=== PATIENT | male | born 1975 | race African-American/Black ===

== ENCOUNTER 2024-06-22 11:39 | Emergency (ER) | payer BC, SELFPAY ==
--- NOTE | ~2024-06-22 | XR_ITS ---
CLINICAL HISTORY: chest pain 1 view chest x-ray Comparison: None Findings: No consolidation or effusion. There is a left apical bulla. Heart size is normal. No acute fracture. IMPRESSION: 1. No acute findings. This document has been electronically signed by: Flynn Shaw MD on 06/22/2024 12:55:34
--- NOTE | 2024-06-22 11:42 | ECG_ITS ---
Test Reason : CHEST PAIN Blood Pressure : / mmHG Vent. Rate : 063 BPM Atrial Rate : 063 BPM P-R Int : 154 ms QRS Dur : 098 ms QT Int : 400 ms P-R-T Axes : 026 -20 030 degrees QTc Int : 409 ms Normal sinus rhythm Moderate voltage criteria for LVH, may be normal variant ( Sokolow-Covarrubias , [place] product ) Borderline ECG No previous ECGs available Referred By: Generic ED Physician Electronically Signed By:CLARE APARICIO
[2024-06-22 11:51] VITALS: BP 171/105; PULSE 69; RESP 18; TEMP 36.7; O2SAT 100; BMI 21.6
--- NOTE | 2024-06-22 11:56 | ED_ITS ---
HPI - Chest Pain General Chief Complaint: Chest Pain Stated Complaint: chest pain Time Seen by Provider: 06/22/24 13:47 Source: patient Mode of arrival: ambulatory Limitations: no limitations History of Present Illness ED Provider: Sheyla De La Torre APRN HPI narrative: 49 yo male with a history of HTN not compliant with medications in many years here with complaints of left sided chest pain with movement, breathing and coughing since Sunday morning. 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 He denies recent illnesses. No associated diaphoresis, shortness of breath, leg swelling/leg pain, fevers, chills. Sunday evening he drove from [place] to [place] but confirms this pain began before then. No family history of DVT/PE, no family history of SCD. Related Data Previous Rx's ?Medication ?Instructions ?Recorded cyclobenzaprine 10 mg tablet 10 mg PO TID PRN muscle spasm #15 06/22/24 tabs ibuprofen 600 mg tablet 600 mg PO Q6H PRN pain #30 tabs 06/22/24 lidocaine 5 % topical patch 1 patch topical DAILY #15 ea 06/22/24 (Lidoderm) Allergies Allergy/AdvReac Type Severity Reaction Status Date / Time No Known Allergies Allergy Verified 06/22/24 11:53 Review of Systems 2 Review of Systems: Yes all other systems are reviewed and are negative Constitutional: Constitutional: Reports no additional constitutional complaints, Denies body ache(s), Denies chills, Denies fever(s), Denies headache(s) and Denies weakness Eyes: Eyes: Reports no additional eye complaints and Denies change in vision ENT: Reports system reviewed and no additional complaints, except as documented, Denies dizziness, Denies headache(s), Denies nasal congestion, Denies nasal discharge and Denies neck pain Cardiovascular: Cardiovascular: Reports no additional cardiovascular complaints, Reports chest pain, Denies leg edema and Denies dyspnea Respiratory: Respiratory: Reports no additional respiratory complaints, Denies cough and Denies dyspnea Gastrointestinal: Gastrointestinal: Reports no additional gastrointestinal complaints, Denies abdominal pain, Denies diarrhea, Denies nausea and Denies vomiting Genitourinary: Genitourinary: Denies urinary incontinence Musculoskeletal: Musculoskeletal: Reports no additional musculoskeletal complaints, Denies back pain, Denies arthralgias, Denies joint swelling, Denies neck pain, Denies numbness and Denies tingling Integumentary/Breasts: Skin/Breast: Reports system reviewed and no additional complaints, except as docu and Denies rash Neurologic: Reports system reviewed and no additional complaints, except as documented, Denies Abnormal speech present, Denies dizziness, Denies headache(s), Denies numbness, Denies tingling and Denies weakness PMFSH Past Medical History Attestation statement: The following information was validated with the patient. Source: old records reviewed and nursing notes reviewed Social History Social History Advance Directives: No Advance Directives Information Provided: No Physical Exam 2 Vital Signs: Vital Signs: Last Vital Signs Temp 98.1 F 06/22/24 14:30 Pulse 55 06/22/24 14:30 Resp 16 06/22/24 14:30 BP 153/93 H 06/22/24 14:30 Pulse Ox 99 06/22/24 14:30 O2 Del Method Room Air 06/22/24 14:30 BMI result Body Mass Index 21.6 Const: General: cooperative, healthy appearing, comfortable and no acute distress Orientation/consciousness: patient oriented x3 Limitations: no limitations HEENT: Head: Yes normal to inspection Ears: hearing grossly normal bilaterally General nose exam: Normal external nose present Face and sinus: Yes normal facial exam Mouth: Normal oral and palatal mucosa present Throat: Yes posterior oropharynx normal Eyes: General: appearance normal, both eyes and all related structures P upils: Equal, round and reactive pupils present Neck: Neck: Yes normal visual inspection Chest: Chest palpation & inspection: normal inspection of the chest and tenderness (left side of chest and rib wall) costal cartilage Resp: Effort & Inspection: normal respiratory effort Auscultation: clear to auscultation bilaterally Cardio: Rate: regular rate Rhythm: regular rhythm Peripheral pulses: P eripheral pulses 2+ throughout GI: Inspection: Yes normal to inspection Palpation (GI): Soft to palpation and nontender Auscultation: normal bowel sounds Back/Spine/Pelvis: Thoracic/Lumbar Spine: thoracic and lumbar spine normal to inspection Skin: General skin exam: no rashes or lesions noted Neuro: General: patient oriented x3, no focal motor deficits and normal sensation to monofilament Cranial nerves: Yes Equal, round and reactive pupils present Cognition (Neuro): normal cognition Speech: No Abnormal speech present Gait exam (Neuro): Normal gait present Motor exam (neuro): 5/5 motor strength present throughout Extrem: General: Yes normal to inspection, Yes no pedal edema and Yes no calf tenderness Course Course Course Narrative: RME: 49-year-old male unknown past medical history presents to ED for chest pain and pleurisy for the past couple of days. Patient states travel by car 1 and days from texting messages seizures ever since then chest pain with pleurisy. Patient denies any calf pain or coughing up blood. Patient admits to being a smoker. Patient states no URI symptoms lungs are clear. Heart size normal. EKG labs chest x-ray ordered. Reevaluation(s) Reevaluation #1: EKG is nonischemic. Troponin is negative. See history of present illness is atypical for ACS and less likely with a nonischemic EKG and negative troponin. Patient's chest x-ray is negative. His additional labs are normal. Likely chest wall strain or costochondritis. Recommend patient use heat or ice, gentle stretching and take ibuprofen or muscle relaxants for pain as needed. He does have some hypertension and he should establish primary care doctor in follow-up as he may need to be on antihypertensives. As he is asymptomatic I will not put him on a antihypertensive at this time. Reviewed worrisome signs and symptoms of when to return to the emergency room. Comfortable plan for discharge home. Medical Decision Making Medical Decision Making MDM Narrative: 49 yo male with a history of HTN not compliant with medications in many years here with complaints of left sided chest pain with movement, breathing and coughing since Sunday morning. 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 He denies recent illnesses. No associated diaphoresis, shortness of breath, leg swelling/leg pain, fevers, chills. Sunday evening he drove from [place] to [place] but confirms this pain began before then. No family history of DVT/PE, no family history of SCD. Chest discomfort on palpation over the left lateral ribs and over the costal cartilage which is worsened with movement of the trunk and of the arm which is more consistent with musculoskeletal pain. Vitals are stable with the exception of mild hypertension-patient is asymptomatic as this chest pain does not seem typical for ACS Will obtain labs, EKG, chest x-ray Differential Diagnosis Differential Diagnoses: The differential diagnosis associated with the presentation includes Chest wall strain, costochondritis Low suspicion for ACS with symptoms for several days with nonischemic EKG and negative troponin Low suspicion for PE with negative D-dimer Low suspicion for aortic dissection with gradual onset of symptoms Admission/Observation Consideration of admission/observation: Escalation of care including admission/observation considered See course of care Lab Data MDM Lab Attestation statement: I reviewed the patient's lab results. 06/22/24 12:39 06/22/24 12:39 Labs: Lab Results 06/22/24 Range/Units 12:39 WBC 5.8 (4.8-10.8) X10*3/uL RBC 5.32 (4.60-5.80) X10*6/uL Hgb 16.8 (14.0-18.0) g/dl Hct 47.6 (42.0-52.0) % MCV 89.5 (80.0-98.0) fL MCH 31.6 (27.0-33.0) pg MCHC 35.3 (31.0-36.0) g/dl RDW 12.7 (11.0-16.0) % Plt Count 249 (160-400) X10*3/uL MPV 10.8 (9.4-12.4) fL Immature Gran % (Auto) 0.2 (0.0-0.4) % Neut % (Auto) 32.0 L (45-73) % Lymph % (Auto) 38.4 (20-40) % Christian % (Auto) 9.6 (2-11) % Eos % (Auto) 18.9 H (0-4) % Baso % (Auto) 0.9 (0-2) % Lymph # (Auto) 2.2 (1.2-4.9) X10*3/uL Christian # (Auto) 0.6 (0.1-1.2) X10*3/uL Eos # (Auto) 1.1 H (0.0-0.4) X10*3/uL Baso # (Auto) 0.1 (0.0-0.2) X10*3/uL Abs Immat Gran (auto) 0.01 (0.00-0.03) X10*3/uL Absolute Neuts (auto) 1.9 L (2.0-8.3) x10*3/uL Absolute Nucleated RBC 0.000 (0.0-0.012) X10*3/uL Nucleated RBC % (auto) 0.0 (0.0-0.2) /100WBC PT 11.9 (10.9-12.4) SEC INR 1.0 (0.9-1.1) APTT 35.9 (26.0-36.8) SEC D-Dimer High Sensitivty < 150 NG/ML Sodium 141 (135-145) mmol/L Potassium 4.1 (3.3-5.1) mmol/L Chloride 107 (96-108) mmol/L Carbon Dioxide 24 (22-29) mmol/L Anion Gap 14 (12-20) BUN 10 (9-16) mg/dL Creatinine 0.93 (0.5-1.4) mg/dL Estim Creat Clear Calc 103.0 Estimated GFR > 60 Random Glucose 84 (60-115) mg/dL Calcium 9.8 (8.4-10.2) mg/dL Total Bilirubin 1.0 (0.0-1.0) mg/dL AST 24 (5-37) U/L ALT 12 (0-40) U/L Alkaline Phosphatase 74 (39-117) U/L Troponin I High Sens < 2.7 (<3.5-35.0) ng/L B-Natriuretic Peptide < 10 (<100) pg/mL Total Protein 7.7 (6.5-8.0) g/dL Albumin 4.5 (3.5-5.0) g/dL Influenza Type A (PCR) NEGATIVE (Negative) Influenza Type B (PCR) NEGATIVE (Negative) RSV RNA Qual (PCR) NEGATIVE (Negative) SARS-CoV-2 RNA (RT-PCR) NEGATIVE (Negative) Independent Interpretation I performed an independent interpretation of an: EKG and Plain X-Ray Interpretation: I independently viewed the x-ray and agree with the radiology report I independently reviewed the EKG which shows normal sinus rhythm with a rate of 63, normal [place], normal QRS, or QT Radiology Impression Discussion of test interpretation with radiology: I have reviewed the radiologist's reading. Radiologist Impression: [address] [address] XRay Report Signed Patient: Phani Adame MR#: [id number] : 1975 Acct:[id number] Age/Sex: 49 / M ADM Date: 06/22/24 Loc: [facility].ED Attending Dr: Ordering Physician: Rob Mcknight Date of Service: 06/22/24 Procedure(s): XR chest 1V Accession Number(s): [id number] cc: Rob Mcknight; Physician,None ~ CLINICAL HISTORY: chest pain 1 view chest x-ray Comparison: None Findings: No consolidation or effusion. There is a left apical bulla. Heart size is normal. No acute fracture. IMPRESSION: 1. No acute findings. This document has been electronically signed by: Flynn Shaw MD on 06/22/2024 12:55:34 Discharge Plan Discharge Clinical Impression: Atypical chest pain Patient Disposition: Home, Self-Care Instructions: Chest Wall Pain (ED) Additional Instructions: Your blood work is normal. Your EKG is normal. Your chest x-ray is normal. Your blood pressure is mildly elevated. We recommend that you repeat your blood pressure and follow-up with the primary care doctor as you may need to back on your blood pressure medications Return to the emergency room for any worsening symptoms Heat or ice Gentle stretching No heavy lifting or bending Prescriptions: New ibuprofen 600 mg tablet 600 mg PO Q6H PRN (Reason: pain) Qty: 30 0RF cyclobenzaprine 10 mg tablet 10 mg PO TID PRN (Reason: muscle spasm) Qty: 15 0RF lidocaine [Lidoderm] 5 % adhesive patch,medicated 1 patch topical DAILY Qty: 15 0RF Rx Instructions: leave on most painful area for up to 12 hrs Interventions: ED Discharge Assessment Last Done: 06/22/24 14:30 Discharge Date/Time: 06/22/24 14:32 Print Language: Setswana
[2024-06-22 12:46] LABS: MANUAL DIFF FLAG NO
[2024-06-22 12:48] LABS: Basophils Absolute Auto 0.1 X10*3/uL (0.0-0.2); Basophils Percent Auto 0.9 % (0-2); Eosinophils Absolute Auto 1.1 X10*3/uL (0.0-0.4); Eosinophils Percent Auto 18.9 % (0-4); Hematocrit 47.6 % (42.0-52.0); Hemoglobin 16.8 g/dl (14.0-18.0); Imm Gran Abs Auto 0.01 X10*3/uL (0.00-0.03); Imm Gran Pct Auto 0.2 % (0.0-0.4); Lymphocytes Absolute Auto 2.2 X10*3/uL (1.2-4.9); Lymphocytes Percent Auto 38.4 % (20-40); Mean Corpuscular HGB Conc 35.3 g/dl (31.0-36.0); Mean Corpuscular Hemoglobin 31.6 pg (27.0-33.0); Mean Corpuscular Volume 89.5 fL (80.0-98.0); Mean Platelet Volume 10.8 fL (9.4-12.4); Monocytes Absolute Auto 0.6 X10*3/uL (0.1-1.2); Monocytes Percent Auto 9.6 % (2-11); Neutrophils Absolute Auto 1.9 x10*3/uL (2.0-8.3); Platelet Count 249 X10*3/uL (160-400); Red Blood Count 5.32 X10*6/uL (4.60-5.80); Red Cell Distribution Width 12.7 % (11.0-16.0); White Blood Count 5.8 X10*3/uL (4.8-10.8)
[2024-06-22 12:54] LABS: Prothrombin Time 11.9 SEC (10.9-12.4)
[2024-06-22 12:56] LABS: Partial Thromboplastin Time 35.9 SEC (26.0-36.8)
[2024-06-22 13:01] LABS: D Dimer High Sensitivity < 150 NG/ML
[2024-06-22 13:07] LABS: Alanine Aminotransferase 12 U/L (0-40); Albumin Level 4.5 g/dL (3.5-5.0); Alkaline Phosphatase 74 U/L (39-117); Anion Gap 14 (12-20); Aspartate Amino Transferase 24 U/L (5-37); Blood Urea Nitrogen 10 mg/dL (9-16); Calcium 9.8 mg/dL (8.4-10.2); Carbon Dioxide 24 mmol/L (22-29); Chloride 107 mmol/L (96-108); Estimated Glomerular Filt Rate > 60; Glucose Random 84 mg/dL (60-115); Potassium 4.1 mmol/L (3.3-5.1); Sodium 141 mmol/L (135-145); Total Protein 7.7 g/dL (6.5-8.0)
[2024-06-22 13:12] LABS: B Type Natriuretic Peptide < 10 pg/mL (<100)
[2024-06-22 13:16] LABS: Troponin-I High Sensitivity < 2.7 ng/L (<3.5-35.0)
[2024-06-22 13:26] LABS: Influenza A PCR NEGATIVE (Negative); Influenza B PCR NEGATIVE (Negative); Resp Syncy Virus RNA Qual PCR NEGATIVE (Negative); SARS COV2 PCR INHOUSE NEGATIVE (Negative)
[2024-06-22 14:30] VITALS: BP 153/93; PULSE 55; RESP 16; TEMP 36.7; O2SAT 99
== END 2024-06-22 14:32 | disposition home or self-care (01) ==
PROVIDERS: Physician Assistant; Emergency Provider Emergency Medicine
DX: R07.89 Other chest pain (principal); R06.02 Shortness of breath; R05.9 Cough, unspecified; Z03.818 Encounter for observation for suspected exposure to other biological agents ruled out; Z79.899 Other long term (current) drug therapy
CPT/HCPCS: 0241U; 36415; 71045; 80053; 83880; 84484; 85025; 85379; 85610; 85730; 93005; 99283

== ENCOUNTER → 2024-06-22 11:42 | Outpatient (BNV) | payer BC, SELFPAY | PROVIDERS: Emergency Provider Emergency Medicine; Visit Provider Internal Medicine | DX: R07.9 Chest pain, unspecified (principal); R94.31 Abnormal electrocardiogram [ECG] [EKG] | CPT/HCPCS: 93010 ==

== ENCOUNTER → 2024-06-22 11:55 | Outpatient (BNV) | payer SELFPAY | PROVIDERS: Visit Provider Specialist | DX: R07.9 Chest pain, unspecified (principal) | CPT/HCPCS: 71045 ==